=== PATIENT | male | born 1980 | race Caucasian/White ===

== ENCOUNTER 2020-05-23 15:03 | Emergency (ER) | payer MEDICARE, MEDICAID, SELFPAY ==
--- NOTE | 2020-05-23 15:09 | ED.GENADULT ---
HPI - General Adult General Chief complaint: Upper Respiratory Infection Stated complaint: upper respiratory infection Time Seen by Provider: 05/23/20 15:07 Source: patient Mode of arrival: ambulatory Limitations: no limitations History of Present Illness HPI narrative: 40-year-old male patient presents to the [facility] with request for COVID-19 testing. Patient states he had a very slight cough that started yesterday along with some sinus and chest congestion. Patient denies taking any [id number] medications for the symptoms so far. Denies any fevers, body aches or chills. Patient states he has also had a little bit of diarrhea for the past 2 days. Patient denies any vomiting or nausea at this time. Denies fevers body aches or chills. Patient states he is coming in wanting to get tested due to the fact that his brother who he lives with did test positive today for Covid. Patient states he did get a flu shot this year. Related Data Home Medications Medication Instructions Recorded Confirmed clozapine 500 mg HS 05/23/20 05/23/20 mirtazapine 30 mg HS 05/23/20 05/23/20 Allergies Allergy/AdvReac Type Severity Reaction Status Date / Time divalproex sodium Allergy Unknown Hives / Verified 09/24/17 22:29 Red Face Review of Systems Review of Systems: Narrative: CONSTITUTIONAL: Denies fever, chills, or sweats. EYES: Denies visual changes, redness, or discharge. ENT: Denies rhinorrhea, positive congestion, denies sore throat, or otalgia. CARDIOVASCULAR: Denies chest pain, palpitations, or edema. RESPIRATORY: Positive mild nonproductive cough, denies dyspnea. GASTROINTESTINAL: Denies abdominal pain, nausea, vomiting, or diarrhea. GENITOURINARY: Denies dysuria or hematuria. SKIN: Denies rash or itching. MUSCULOSKELETAL: Denies back pain, joint pain, or myalgia. NEUROLOGIC: Denies headache, numbness, or weakness. PSYCHIATRIC: Denies anxiety or depression. [facility] Past Medical History Medical History (Updated 05/23/20 @ 15:27 by MARIYA Kuhn) GERD (gastroesophageal reflux disease) Schizophrenia Social History Social History Gender identity (if verbalized by the patient): Male Comments At the time of my signature I agree with nursing past medical history, surgical, social, and family history. There is no relevant family history pertinent to the presenting complaint. Exam Narrative: Exam Narrative: GENERAL: Well-appearing, well-nourished, and in no acute distress. HEAD: Normocephalic, atraumatic. EYES: PERRLA and EOMI. ENT: Nares clear, no rhinorrhea or epistaxis. Mucous membranes moist. Posterior pharynx with no erythema, tonsil enlargement, exudates or lesions present. Bilateral TMs are clear no erythema or foreign bodies to the canal. NECK: Supple. No lymphadenopathy CHEST: Clear to auscultation. No respiratory distress. HEART: Regular rate and rhythm. No murmur heard. Normal peripheral pulses. ABDOMEN: Soft, nontender, nondistended, normal active bowel sounds. EXTREMITIES: Normal range of motion. No edema. SKIN: Warm, dry, no rash. NEURO: No focal deficits. Alert and oriented x3. Course Vital Signs Vital signs: Vital Signs Temperature 37.1 C 05/23/20 15:21 Pulse Rate 104 H 05/23/20 15:21 Respiratory Rate 20 05/23/20 15:21 Blood Pressure 140/62 05/23/20 15:21 Pulse Oximetry 100 05/23/20 15:21 Temperature 37.1 C 05/23/20 15:21 Pulse Rate 104 H 05/23/20 15:21 Respiratory Rate 20 05/23/20 15:21 Blood Pressure 140/62 05/23/20 15:21 Pulse Oximetry 100 05/23/20 15:21 Vital signs reviewed The patient has been informed that they may have pre-hypertension or Hypertension based on a BP reading in the department. I recommend that the patient call the primary care provider listed on their discharge instructions or a physician of their choice this week to arrange follow up for further evaluation of possible pre-hy
[2020-05-23 15:21] VITALS: BP 140/62; PULSE 104; RESP 20; TEMP 37.1; O2SAT 100
[2020-05-24 19:31] LABS: SARS-CoV-2 RNA PCR Negative
== END 2020-05-23 15:33 | disposition home or self-care (01) ==
PROVIDERS: Emergency Provider Nurse Practitioner Family
DX: Z20.822 Contact with and (suspected) exposure to COVID-19 (principal); K21.9 Gastro-esophageal reflux disease without esophagitis
CPT/HCPCS: 99213; C9803; G0463; U0003

== ENCOUNTER 2020-07-26 06:42 | Emergency (ER) | payer MEDICARE, MEDICAID, SELFPAY ==
--- NOTE | ~2020-07-26 | XR_ITS ---
EXAMINATION: XR chest 2V DATE: 07/26/2020 07:01 INDICATION: Shortness of breath and midsternal chest pain. TECHNIQUE: Frontal and lateral views of the chest were obtained. COMPARISON: None. FINDINGS: There is mild atelectasis at the lung bases. No pleural effusion or pneumothorax. The heart size is normal. IMPRESSION: 1. Mild atelectasis at the lung bases. Reviewed, dictated and finalized at location A. OBIOLOGY ANALYST
[2020-07-26 06:46] VITALS: BP 194/102; PULSE 118; RESP 23; TEMP 37.4; O2SAT 98
--- NOTE | 2020-07-26 06:49 | ECG_ITS ---
Measurements Intervals [place] Rate: 82 P: 34 [place]: 168 QRS: 61 QRSD: 93 T: 49 QT: 433 QTc: 507 Interpretive Statements SINUS RHYTHM ATRIAL PREMATURE COMPLEX BORDERLINE ST-T WAVE ABNORMALITY- DIFFUSE LEADS PROLONGED QT INTERVAL BASELINE ARTIFACT- I, III, AVR, AVL, AVF ABNORMAL ECG Electronically Signed On 07-26-2020 7:29:22 ACTIVITY SPECIALIST by Jeb Zhu D.O.
[2020-07-26 06:50] VITALS: PULSE 111; O2SAT 97
[2020-07-26 07:01] LABS: Basophils Percent Auto 0.1 % (0.2-1.2); Eosinophils Percent Auto 0.2 % (0-4.4); Hematocrit 36.6 % (42.0-52.0); Hemoglobin 12.7 g/dL (14.0-18.0); Immature Granulocyte Absolute 0.02 K/mm3 (0.00-0.031); Immature Granulocyte Percent A 0.2 % (0-0.5); Lymphocytes Absolute Auto 2.42 K/mm3 (0.9-3.2); Lymphocytes Percent Auto 25.7 % (18.3-44.2); Mean Corpuscular HGB Conc 34.7 g/dl (32-36); Mean Corpuscular Hemoglobin 28.5 pg (26-34); Mean Corpuscular Volume 82.2 fl (80-100); Mean Platelet Volume 10.3 fl (7.4-10.4); Monocytes Absolute Auto 0.7 K/mm3 (0.1-0.6); Monocytes Percent Auto 7.4 % (2.6-8.5); Neutrophils Absolute Auto 6.2 K/mm3 (1.3-6.7); Neutrophils Percent Auto 66.4 % (45.5-73.1); Platelet Count Result 238 k/mm3 (150-375); Red Blood Count 4.45 M/mm3 (4.6-6.20); Red Cell Distribution Width 12.6 % (11.5-14.5); White Blood Count 9.4 K/mm3 (4.5-10.0)
[2020-07-26 07:13] LABS: Anion Gap 12 mmol/L (8-16); Blood Urea Nitrogen 11 mg/dL (9-20); Calcium 8.9 mg/dL (8.4-10.2); Carbon Dioxide 22 mmol/L (22-30); Chloride 101 mmol/L (98-107); Estimated Glomerular Filt Rate > 60; Glucose 173 mg/dL (75-110); Potassium 3.5 mmol/L (3.4-5.0); Sodium 135 mmol/L (137-145)
[2020-07-26] MEDS: LORazepam INJ (*CRX) 2 MG/ML VIAL 0.5 MG IV PUSH (07:28)
[2020-07-26] MEDS: cloNIDine HCL 0.2 MG TABLET PO (07:32)
[2020-07-26 08:02] VITALS: BP 162/96; PULSE 105; RESP 17; O2SAT 98
--- NOTE | 2020-07-26 09:18 | ED.GENADULT ---
HPI - General Adult General Chief complaint: Shortness of Breath/Dyspnea Stated complaint: did cocaine last night/ SOB Time Seen by Provider: 07/26/20 07:17 Source: patient and family Mode of arrival: ambulatory Limitations: no limitations History of Present Illness HPI narrative: 40-year-old with a history of schizophrenia here with complaints of shortness of breath since middle of the night. Patient states that he snorted cocaine yesterday soon after he started experiencing shortness of breath, he denies any chest pain, nausea or vomiting or fever. Patient states that he uses cocaine on a weekly basis and also uses fentanyl twice a week. Mom states that he was breathing heavy early this morning so had to bring him to the ER Onset (ago): hour(s) (4) Associated symptoms: denies other symptoms Related Data Home Medications Medication Instructions Recorded Confirmed clozapine 500 mg HS 05/23/20 05/23/20 mirtazapine 30 mg HS 05/23/20 05/23/20 Allergies Allergy/AdvReac Type Severity Reaction Status Date / Time divalproex sodium Allergy Unknown Hives / Verified 07/26/20 06:49 Red Face Review of Systems Review of Systems: All systems reviewed & are unremarkable except as noted in HPI and below Constitutional: Constitutional: Reports no additional constitutional complaints Eyes: Eyes: Reports no additional eye complaints ENT: Reports system reviewed and no additional complaints, except as documented Cardiovascular: Cardiovascular: Reports no additional cardiovascular complaints Respiratory: Respiratory: Reports as per HPI Gastrointestinal: Gastrointestinal: Reports no additional gastrointestinal complaints Musculoskeletal: Musculoskeletal: Reports no additional musculoskeletal complaints Neurologic: Reports system reviewed and no additional complaints, except as documented Psychiatric: Psychiatric: Reports no additional psychiatric complaints Endocrine: Endocrine: Reports no additional endocrine complaints [facility] Past Medical History Medical History GERD (gastroesophageal reflux disease) Schizophrenia Social History Social History Gender identity (if verbalized by the patient): Male Exam Narrative: Exam Narrative: GENERAL: Well-appearing, well-nourished, and in no acute distress, ANXIOUS. HEAD: Normocephalic, atraumatic. EYES: PERRLA and EOMI.. NECK: Supple. CHEST: Clear to auscultation. No respiratory distress. HEART: Tachycardiac . No murmur heard. Normal peripheral pulses. ABDOMEN: Soft, nontender, nondistended, normal active bowel sounds. EXTREMITIES: Normal range of motion. No edema. SKIN: Warm, dry, no rash. NEURO: No focal deficits. Alert and oriented x3. PSYCH: Normal mood and affect. Course Course Emergency Course: Patient was given clonidine and Ativan,. Heart rate has significantly reduced to 92 and his blood pressure has improved to 139/91, I discussed lab work and x-ray findings with the patient and his mother. Advised patient to consider quitting drugs if it is a problem to consider drug rehab. Advised him to follow-up with his primary doctor. Also informed him about his elevated blood sugar Vital Signs Vital signs: Vital Signs Temperature 37.4 C 07/26/20 06:46 Pulse Rate 118 H 07/26/20 06:46 Respiratory Rate 23 H 07/26/20 06:46 Blood Pressure 194/102 H 07/26/20 06:46 Pulse Oximetry 98 07/26/20 06:46 Temperature 37.4 C 07/26/20 06:46 Pulse Rate 105 H 07/26/20 08:02 Respiratory Rate 17 07/26/20 08:02 Blood Pressure 162/96 H 07/26/20 08:02 Pulse Oximetry 98 07/26/20 08:02 Medical Decision Making MDM Narrative Medical decision making narrative: Letter given history of cocaine abuse to do CBC chemistry and EKG along with troponin. Meanwhile we will give clonidine point Ativan. Differential Diagnosis Differential Diagnosis: Anxiety att
[2020-07-26 09:36] VITALS: BP 134/94; PULSE 98; RESP 20; O2SAT 100
== END 2020-07-26 09:39 | disposition home or self-care (01) ==
PROVIDERS: Emergency Medicine; Emergency Provider Family Medicine; Referring Provider Internal Medicine
DX: R06.02 Shortness of breath (principal); F14.10 Cocaine abuse, uncomplicated; R73.9 Hyperglycemia, unspecified; K21.9 Gastro-esophageal reflux disease without esophagitis; F20.9 Schizophrenia, unspecified; R91.8 Other nonspecific abnormal finding of lung field
CPT/HCPCS: 36415; 71046; 80048; 85025; 93005; 96374; 99284; A9270; J2060

== ENCOUNTER 2024-04-06 18:35 | Emergency (ER) | payer MEDICARE, MEDICAID, SELFPAY ==
[2024-04-06 18:28] VITALS: PULSE 0; RESP 0; O2SAT 0
[2024-04-06 18:37] VITALS: PULSE 0; RESP 0; O2SAT 0
--- NOTE | 2024-04-06 19:04 | ED_ITS ---
HPI - CPR General Chief Complaint: Cardiac Arrest/CPR Stated Complaint: CARDIAC ARREST Time Seen by Provider: 04/06/24 19:04 History of Present Illness HPI narrative: this is a 43-year-old male presenting ED in cardiac arrest. EMS was called at 5:52 for a man down. When they arrived on scene Bystander CPR was in progress. Initial rhythm was PEA. ACLS protocols followed with intubation and multiple rounds of epinephrine with no return of spontaneous circulation. Patient was then transported to the hospital as the paramedics were uncomfortable with the scene. Related Data Home Medications Medication Instructions Recorded Confirmed clozapine 100 mg tablet 500 mg HS 05/23/20 05/23/20 mirtazapine 30 mg tablet 30 mg HS 05/23/20 05/23/20 Allergies Allergy/AdvReac Type Severity Reaction Status Date / Time divalproex sodium Allergy Unknown Hives / Verified 07/26/20 06:49 Red Face PMFSH Past Medical History Medical History GERD (gastroesophageal reflux disease) Schizophrenia Social History Social History Gender identity (if verbalized by the patient): Male Exam Narrative: APPEARANCE: Unresponsive, cyanotic Head: atraumatic. EYES: fixed and dilated NOSE: Atraumatic NECK: Trachea midline RESPIRATORY: no respiratory effort CARDIOVASCULAR: no pulse ABDOMINAL: Non-distended MUSCULOSKELETAl: No obvious deformities NEURO: unresponsive PSYCHIATRIC: unresponsive Course Vital Signs Vital signs: Vital Signs Pulse Rate 0 L 04/06/24 18:28 Respiratory Rate 0 L 04/06/24 18:28 Pulse Oximetry 0 L 04/06/24 18:28 Pulse Rate 0 L 04/06/24 18:28 Respiratory Rate 0 L 04/06/24 18:28 Pulse Oximetry 0 L 04/06/24 18:28 MDM - Cardiac Arrest/CPR MDM Narrative Medical decision making narrative: -Course: 43-year-old male presenting after prolonged CPR. On arrival to the ED had already underwent over 30 minutes of CPR with ACLS protocols. On arrival here he was in asystole. Chance of neurologically intact survival is nil. Time of was called at 1837. Discharge Plan Discharge Clinical Impression: Cardiac arrest Patient Disposition: Condition: Prescriptions: No Action clozapine 100 mg tablet 500 mg HS mirtazapine 30 mg tablet 30 mg HS Follow-up/Referrals: PHYSICIAN,GRINDER SET UP OPERATOR SURFACE [Primary Care Provider] -
--- NOTE | 2024-04-06 19:21 | PC.NURSE ---
1751 ems was called out to the scene for a witnessed arrest with bystander CPR initiated ems gave 6 epi, 1 bicarb, 2 narcan. pt was drilled for an IO in his RLE. pt was intubated with a 7.5 ETT. 1833 ems arrives to ED 1834 pule check, pt in asystole 1836 time of was called by EDP Dr. Barber [ End ]
== END 2024-04-06 19:04 | disposition expired ==
PROVIDERS: Emergency Provider Emergency Medicine
DX: I46.9 Cardiac arrest, cause unspecified (principal); K21.9 Gastro-esophageal reflux disease without esophagitis
CPT/HCPCS: 92950; 99285